=== PATIENT | female | born 1960 | race Caucasian/White ===

== ENCOUNTER 2018-05-29 11:57 | Emergency (ER) | payer SELFPAY ==
--- NOTE | 2018-05-29 12:33 | UC ---
UC General HPI - HPI Summary HPI Summary: pt c/o a cough with chest congestion x 1.5 weeks. had vomited from the cough once. 4 days ago, suddenly worse with sinus congestion, scratchy throat, AND[place], bodyaches and feverish. no asthma or copd. - History of Current Complaint Stated Complaint: SINUS,COUGH,CONGESTION Hx Obtained From: Patient Associated Signs & Symptoms: Positive: Diarrhea. Negative: Chest Pain - Allergy/Home Medications Allergies/Adverse Reactions: Allergies Allergy/AdvReac Type Severity Reaction Status Date / Time ampicillin Allergy Severe SWELLING Verified 05/29/18 13:03 OF FACE LIPS AND THROAT nebivolol [From [facility]] Allergy Severe CHEST PAIN Verified 05/29/18 13:03 amoxicillin Allergy Unknown Unknown Verified 05/29/18 13:03 Reaction Details ranitidine Allergy Unknown Unknown Verified 05/29/18 13:03 Reaction Details MS Yellow Dye [From [facility]] AdvReac Severe chest pain Verified 05/29/18 13:03 antibiotic and antacid tablet Allergy Intermediate tongue Uncoded 05/29/18 13:03 swelling and hives Home Medications: Home Medications oxyCODONE TAB* [Roxycodone TAB 5 mg*] 5 mg PO Q4H PRN 05/29/18 [History Confirmed 05/29/18] PMH/Surg Hx/FS Hx/Imm Hx Endocrine History: Diabetes, Dyslipidemia Cardiovascular History: Hypertension GI/ History: Gastroesophageal Reflux - Surgical History Surgical History: Yes Surgery Procedure, Year, and Place: perforated colon with a reversal of colostomy-2009 [facility]. hysterectomy - 1993 [facility] [place]. GB - [place]. TONSILS- CHILD [facility]. JAW- 1976 [facility] - Social History Substance Use Type: None Review of Systems All Other Systems Reviewed And Are Negative: Yes Constitutional: Positive: Chills ENT: Positive: Sore Throat, Sinus Congestion Respiratory: Positive: Shortness Of Breath, Cough Gastrointestinal: Positive: Vomiting - x1 from cough, Diarrhea. Negative: Abdominal Pain Musculoskeletal: Positive: Myalgia Neurological: Positive: Headache Physical Exam Triage Information Reviewed: Yes Appearance: Ill-Appearing - but non toxic Vital Signs Reviewed: Yes Eyes: Positive: Conjunctiva Clear ENT: Positive: Pharynx normal, TMs normal. Negative: Nasal drainage Neck: Positive: Supple, Nontender, No Lymphadenopathy Respiratory: Positive: No respiratory distress, Decreased breath sounds, Other: - npc Cardiovascular: Positive: No Murmur, Brisk Capillary Refill, Tachycardia Abdomen Description: Positive: Nontender, No Organomegaly, Soft. Negative: Distended, Guarding Bowel Sounds: Positive: Present Musculoskeletal: Positive: ROM Intact Neurological: Positive: Alert Psychological: Positive: Age Appropriate Behavior Skin Exam: Other - Face is flushed Skin: Negative: Rashes Diagnostics - Radiology No standard instances Radiology Interpretation Completed By: Radiologist - CXR=NO ACTIVE CARDIOPULMONARY DISEASE. Re-Evaluation - Re-Evaluation First Eval Re-Evaluation Time: 13:45 Change: Improved - MUCH BETTER AERATION. STILL COUGHING BUT A LITTLE LESS. Course/Dx - Course Course Of Treatment: DIAGNOSTIC=RAPID FLU IS NEGATIVE - Differential Dx - Multi-Symptom Differential Diagnoses: Other - CXR=NAD, RAPID FLU=NEGATIVE; HOWEVER, PROLONGED ILLNESS AND SUDDENLY MUCH WORSE X 4 DAYS THUS WILL COVER FOR PRESUMPTIVE SECONDARY BACTERIAL INFECTION. - Diagnoses Provider Diagnosis: URI (upper respiratory infection), Cough in adult, Bronchospasm Discharge - Sign-Out/Discharge Documenting (check all that apply): Patient Departure All imaging exams completed and their final reports reviewed: Yes - Discharge Plan Condition: Stable Disposition: HOME Prescriptions: Albuterol HFA INHALER* [Ventolin HFA Inhaler*] 2 puff INH Q6H #1 mdi Azithromycin TAB* [Zithromax TAB (Z-[place]) 250 mg #6 tabs] 2 tab PO .TODAY, THEN 1 DAILY #1 [place] predniSONE [Prednisone 20 MG TAB] 40 mg PO DAILY 3 Days #6 tablet Patient Education Materials: Bronchospasm (ED), Acute Cough (ED) Forms: *Work Release Referrals: Macey Ramires MD [Primary Care Provider] - 5 Days - Billing Disposition and Condition Condition: STABLE Disposition: Home - Attestation Statements Provider Attestation: Per institutional requirements, I have reviewed the chart, however, I was not consulted specifically or made aware of this patient by the midlevel provider. I did not personally evaluate, interact with , or disposition this patient.
[2018-05-29 12:43] VITALS: BP 138/83
[2018-05-29] MEDS ORDERED: Albuterol 2.5 MG/3 ML NEB.SOL* (0.083%) INH ONE (12:52)
[2018-05-29 13:27] LABS: Influenza A Molecular NEGATIVE (Negative); Influenza B Molecular NEGATIVE (Negative)
== END 2018-05-29 14:02 | disposition home or self-care (01) ==
LOC: UCCORT 11:57
DX: J06.9 Acute upper respiratory infection, unspecified (principal); R05 Cough; J98.01 Acute bronchospasm; R09.89 Other specified symptoms and signs involving the circulatory and respiratory systems; E11.9 Type 2 diabetes mellitus without complications; E78.5 Hyperlipidemia, unspecified; I10 Essential (primary) hypertension; K21.9 Gastro-esophageal reflux disease without esophagitis; Z88.0 Allergy status to penicillin; Z88.8 Allergy status to other drugs, medicaments and biological substances
CPT/HCPCS: 71046; 99212; G0463